=== PATIENT | male | born 1950 | race Caucasian/White ===

== ENCOUNTER → 2020-06-14 13:56 | Outpatient (BNVA) | payer MEDICARE, SELFPAY | PROVIDERS: PCP Internal Medicine; Visit Provider Urology | DX: N39.3 Stress incontinence (female) (male) (principal); C61 Malignant neoplasm of prostate | CPT/HCPCS: Q3014 ==

== ENCOUNTER → 2020-12-18 12:47 | Outpatient (BNVA) | payer MEDICARE, SELFPAY | PROVIDERS: PCP Internal Medicine; Visit Provider Urology | DX: N39.3 Stress incontinence (female) (male) (principal); C61 Malignant neoplasm of prostate | CPT/HCPCS: 52000; 99212 ==

== ENCOUNTER → 2021-03-19 15:32 | Outpatient (BNVA) | payer MEDICARE, SELFPAY | PROVIDERS: PCP Internal Medicine; Visit Provider Urology | DX: L98.7 Excessive and redundant skin and subcutaneous tissue (principal); D49.4 Neoplasm of unspecified behavior of bladder; C79.82 Secondary malignant neoplasm of genital organs; Z90.79 Acquired absence of other genital organ(s) | CPT/HCPCS: Q3014 ==

== ENCOUNTER → 2021-06-18 10:22 | Outpatient (BNVA) | payer MEDICARE, SELFPAY | PROVIDERS: PCP Internal Medicine; Visit Provider Urology | DX: C61 Malignant neoplasm of prostate (principal); N39.3 Stress incontinence (female) (male) | CPT/HCPCS: Q3014 ==

== ENCOUNTER → 2021-12-17 09:17 | Outpatient (BNVA) | payer MEDICARE, SELFPAY | PROVIDERS: PCP Internal Medicine; Visit Provider Urology | DX: N39.3 Stress incontinence (female) (male) (principal); C61 Malignant neoplasm of prostate | CPT/HCPCS: 51798; 99212 ==

== ENCOUNTER → 2022-03-18 13:35 | Outpatient (BNVA) | payer MEDICARE, SELFPAY | PROVIDERS: PCP Internal Medicine; Visit Provider Urology | DX: N39.3 Stress incontinence (female) (male) (principal); C61 Malignant neoplasm of prostate | CPT/HCPCS: Q3014 ==

== ENCOUNTER → 2022-07-07 15:01 | Outpatient (BNVA) | payer MEDICARE, SELFPAY | PROVIDERS: PCP Internal Medicine; Visit Provider Urology | DX: N39.3 Stress incontinence (female) (male) (principal) | CPT/HCPCS: Q3014 ==

== ENCOUNTER 2022-11-03 11:00 | Outpatient (RCR) | payer MEDICARE, SELFPAY ==
--- NOTE | 2022-10-13 10:12 | MHC.PT.EP ---
[facility] [place] Office [place] Office [place] Office [address] Mika Lara [address] [phone] F: [phone] F: [phone] F: [phone] F: [phone] Physical Therapy Plan of Care Date of Evaluation: Date of Surgery: NA Diagnosis: Male urinary stress incontinence Assessment: Jacky is a 72 year old male who is referred to PT for Male urinary stress incontinence . He reports of having symptoms of spontaneous urinary incontinence and ELVIS for the last 3 years. His symptoms started after prostate removal surgery. He also had R inguinal hernia repair 4 years back. In addition he has IBS- mostly having diarrhea- and is managing the same with diet. He denies having any pain. He is not sexually active but has difficulty attaining erection. He however only wants to work on his UI. He lives with his and is independent with all ADLS. He presented with good LE strength but decreased core strength. He would benefit from skilled PT to address the aforementioned impairments and improve tolerance to functional activities. Pt recommended 1/week fro 8 weeks however due to high co-pay pt will let us know when he will return to PT. Frequency and Duration: The patient will be seen 1/week for 8 weeks. Short Term Goals: 1. Internal pelvic exam will be done in 2 weeks. 2. Pt will report of having 50% decrease in UI in 4 weeks Special Education Paraprofessional Goals: 1. Pt will present with no ELVIS in 6 weeks. 2. Pt will be independent with all HEPs for symptom management and maintenance following d/c in 8 weeks. Treatment Plan: Modalities to reduce pain, spasms and effusion. Manual therapy to restore motion and function. Therapeutic exercise to improve strength and flexibility. Neuromuscular re-education for posture and balance. Therapeutic activities to return to functional activities of daily living. Electronically signed by: Please sign and return to therapist. Thank you for your referral.
--- NOTE | 2022-11-12 15:30 | MHC.PT.DC ---
[facility] [place] Office [place] Office [place] Office [address] Sharri Lara [address] [facility] [phone] F: [phone] F: [phone] F: [phone] F: [phone] Physical Therapy Discharge Report Diagnosis: Male urinary stress incontinence Date of Surgery: NA Date of Evaluation: 10/13/22 Date of Discharge: 11/12/22 Treatments to Date: 2 Cancellations to Date: 0 No Shows to Date: Discharge Status: Patient Elected to Stop Discharge Summary: Jacky only attended 1 PT visit after his evaluation due to high copay. He wanted to learn exercises for self management in second visit and he requested to be d/c. I therefore provided him with lumbar stabs and pelvic floor strengthening exercises and d/c him from PT. Electronically signed by: Carlene Shane, PT DPT Please sign and return to therapist. Thank you for your referral.
== END 2022-11-12 15:31 | disposition home or self-care (01) ==
LOC: HO.PT 11:00
PROVIDERS: PCP Internal Medicine; Visit Provider Urology
DX: N39.3 Stress incontinence (female) (male) (principal)
CPT/HCPCS: 97112; 97162

== ENCOUNTER 2023-01-06 13:57 | Outpatient (AMB) | payer MEDICARE, SELFPAY ==
--- NOTE | 2023-01-06 14:08 | MHC.OFFVIS ---
Intake Intake Visit Reasons: 6m Intake Note: Patient is present for Follow Up Urology Med:None Antibiotic Allergy: None Blood Thinner: Eliquis Pharmacy: [facility] Allergies No Known Allergies Allergy (Verified 01/06/23 14:09) HPI HPI Comments History of Present Illness Details Jacky is a very pleasant male. They are a patient of Dr. Olguin. They are seen in the office today for the following urologic conditions. - prostate cancer - male stress incontinence Follow-up from physical therapy Prostate removal robotic prostatectomy 2018 Secondary issue is both sagging of skin secondary to pneumoperitoneum used for surgery and leakage Prior discussion regarding male sling versus sphincter With pelvic floor exercise using 2-3 pads per day Would like to move ahead with male sling Prostate cancer robotic prostatectomy mid 2018 Dr. Gerardo Persistent incontinence 4-5 pads per day PSA - 12/28 <0.1 Cystoscopy - good anastomosis, able to develop sufficient squeeze with sphincter PFSH Medical History Bladder tumor Diabetes mellitus Prostate cancer Stress incontinence Surgical History History of prostatectomy Family History Father No problems noted. Mother No problems noted. Review of Systems Const Denies chills and Denies fever(s) Card Reports no additional complaints and Denies syncope Resp Denies cough GI Denies abdominal pain and Denies heartburn Reports as per HPI and Denies change in libido Neuro Denies syncope Psych Denies change in libido Endo Denies change in libido Physical Exam Const General: cooperative, healthy appearing, comfortable and no acute distress Orientation/consciousness: patient oriented x3 HEENT Face and sinus: Yes normal facial exam Mouth: moist mucous membranes Neck Neck: Yes normal visual inspection, Yes full ROM and Yes trachea midline Chest Chest palpation & inspection: normal inspection of the chest Resp Effort & Inspection: normal respiratory effort, able to speak in complete sentences and no respiratory distress GI Inspection: Yes normal to inspection Back/Spine/Pelvis Cervical Spine: normal cervical lordosis Thoracic/Lumbar Spine: thoracic and lumbar spine normal to inspection Skin General skin exam: no rashes or lesions noted Neuro General: patient oriented x3, gait normal, tone normal and moves all extremities Extrem General: Yes normal to inspection and Yes capillary refill normal Assessment & Plan Assessment & Plan (1) Prostate cancer: Comment: Robotic assisted prostatectomy 2019 Dr. Gerardo Code(s): C61 - Malignant neoplasm of prostate (2) Male urinary stress incontinence: Code(s): N39.3 - Stress incontinence (female) (male) Plan Risks, benefits and alternatives to therapy were discussed. These include but are not limited to infection, bleeding, damage to local organs and tissues, need for further interventions. Anesthetic risks regarding cardiac arrhythmia, blood clots, and potential mortality were discussed. The patient understands the typical recovery time and the outpatient nature of the procedure. After consideration of these risks the patient gives full informed consent and they wish to move ahead with the procedure. Male sling Patient Instructions: Imaging studies, laboratory and physical exam results were discussed and reviewed in detail. No major barriers to patient understanding were identified. An opportunity to ask questions regarding the treatment plan was provided. All questions were answered. The patient expressed understanding and agreement with the above treatment plan. The patient is aware they should contact our office by phone for worsening of their current condition or the appearance of new urologic symptoms. Compliance is encouraged with any medications and followup testing that is ordered. It is a privilege to participate in the urologic care of your patient. If you have any questions or concerns regarding treatment for the above conditions, or other urologic issues, please do not hesitate to contact me. The office telephone contact is [phone]. This note is constructed using voice recognition software. While every effort has been made to ensure accuracy machine applicator cementer errors may have been included. Yours sincerely, Dr Charli Torres MD, [facility] - Urology Providers of Expert, Compassionate Care for the Genitourinary System Coding Level of Care Code Est Pt Level 4 (48317) Diagnoses Prostate cancer C61 Male urinary stress incontinence N39.3
== END 2023-01-06 14:40 | disposition home or self-care (01) ==
PROVIDERS: PCP Internal Medicine; Visit Provider Urology
DX: C61 Malignant neoplasm of prostate (principal); N39.3 Stress incontinence (female) (male)
CPT/HCPCS: 99213

== ENCOUNTER → 2023-01-06 13:57 | Outpatient (BNVA) | payer MEDICARE, SELFPAY | PROVIDERS: Visit Provider Urology ==

== ENCOUNTER 2023-03-19 11:35 | Outpatient (AMB) | payer MEDICARE, SELFPAY ==
--- NOTE | 2023-03-19 11:36 | A.OFFVIS_ITS ---
Intake Intake Visit Reasons: H&P (Male sling 03/29) Intake Note: Patient is Present for Telephone Follow Up H&P Urology Med: None Antibiotic Allergy: None Blood Thinner: Eliquis Allergies No Known Allergies Allergy (Verified 04/20/23 11:35) HPI HPI Comments History of Present Illness Details Jacky is a very pleasant male. They are a patient of Dr. Olguin. They are seen in the office today for the following urologic conditions. - prostate cancer - male stress incontinence Telemedicine Evaluation 15 min Consultation DoximSafeAwake Anil Video attempted Discussion regarding a male sling Understands based suited for [id number] leakage Prior cystoscopy with deposition of urethra Prostate removal robotic prostatectomy mid 2018 Secondary issue is both sagging of skin secondary to pneumoperitoneum used for surgery and leakage Would like to move ahead with male sling Prostate cancer robotic prostatectomy mid 2018 Dr. Gerardo Persistent incontinence 4-5 pads per day PSA - 12/28 <0.1 Cystoscopy - good anastomosis, able to develop sufficient squeeze with sphincter PFSH Medical History Hyperlipidemia Gout HTN (hypertension) DVT (deep venous thrombosis) Diabetes mellitus Bladder tumor Prostate cancer Stress incontinence Surgical History Hx of shoulder surgery Hx of right inguinal hernia repair History of prostatectomy Family History Father No problems noted. Mother No problems noted. Social History Patient Tobacco Use Status: Never used Tobacco Review of Systems Const All systems reviewed & are unremarkable except as noted in HPI and below Denies chills and Denies fever(s) Card Reports no additional complaints and Denies syncope Resp Denies cough GI Denies abdominal pain and Denies heartburn Reports as per HPI and Denies change in libido Musc Reports no additional complaints Neuro Denies syncope Psych Denies change in libido Endo Denies change in libido Physical Exam Telemedicine evaluation Appropriate responses Regular breathing rate and rhythm Const General: cooperative, healthy appearing, comfortable and no acute distress Orientation/consciousness: patient oriented x3 HEENT Head: Yes normal to inspection Ears: hearing grossly normal bilaterally Face and sinus: Yes normal facial exam Mouth: moist mucous membranes Eyes General: appearance normal, both eyes and all related structures Neck Neck: Yes normal visual inspection, Yes full ROM and Yes trachea midline Chest Chest palpation & inspection: normal inspection of the chest Resp Effort & Inspection: normal respiratory effort, able to speak in complete sentences and no respiratory distress GI Inspection: Yes normal to inspection Back/Spine/Pelvis Cervical Spine: normal cervical lordosis Thoracic/Lumbar Spine: thoracic and lumbar spine normal to inspection Skin General skin exam: no rashes or lesions noted Neuro General: patient oriented x3, gait normal, tone normal and moves all extremities Extrem General: Yes normal to inspection and Yes capillary refill normal Assessment & Plan Assessment & Plan (1) Prostate cancer: Comment: Robotic assisted prostatectomy 2018 Dr. Gerardo Code(s): C61 - Malignant neoplasm of prostate (2) Male urinary stress incontinence: Code(s): N39.3 - Stress incontinence (female) (male) Plan Risks, benefits and alternatives to therapy were discussed. These include but are not limited to infection, bleeding, damage to local organs and tissues, need for further interventions. Anesthetic risks regarding cardiac arrhythmia, blood clots, and potential mortality were discussed. The patient understands the typical recovery time and the outpatient nature of the procedure. After consideration of these risks the patient gives full informed consent and they wish to move ahead with the procedure. Male sling placement with cystoscopy Patient Instructions: Imaging studies, laboratory and physical exam results were discussed and reviewed in detail. No major barriers to patient understanding were identified. An opportunity to ask questions regarding the treatment plan was provided. All questions were answered. The patient expressed understanding and agreement with the above treatment plan. The patient is aware they should contact our office by phone for worsening of their current condition or the appearance of new urologic symptoms. Compliance is encouraged with any medications and followup testing that is ordered. It is a privilege to participate in the urologic care of your patient. If you have any questions or concerns regarding treatment for the above conditions, or other urologic issues, please do not hesitate to contact me. The office telephone contact is [phone]. This note is constructed using voice recognition software. While every effort quiros s been made to ensure accuracy meat cooler errors may have been included. Yours sincerely, Dr Charli Torres MD, [facility] - Urology Providers of Expert, Compassionate Care for the Genitourinary System Telehealth Telehealth Location of provider rendering services: practice address Location of patient: address on file Patient Identification confirmed using: Name, : Yes Telehealth method: video Patient verbally consented to treatment: Yes Patient verbally consented to billing insurance company: Yes Patient informed of any privacy concerns related to visit: Yes Coding Level of Care Code Tele Est Pt Level 3 (44988) Diagnoses Prostate cancer C61 Male urinary stress incontinence N39.3
== END 2023-03-19 12:04 | disposition home or self-care (01) ==
LOC: HO.HUSH 11:35
PROVIDERS: PCP Internal Medicine; Visit Provider Urology
DX: C61 Malignant neoplasm of prostate (principal); N39.3 Stress incontinence (female) (male)
CPT/HCPCS: 99213

== ENCOUNTER → 2023-03-19 11:35 | Outpatient (BNVA) | payer MEDICARE, SELFPAY | PROVIDERS: PCP Internal Medicine; Visit Provider Urology ==

== ENCOUNTER 2023-03-24 10:37 | Outpatient (REF) | payer MEDICARE, SELFPAY ==
[2023-03-24 13:35] LABS: Estimated Average Glucose 134 mg/dL; Hemoglobin A1C 151.7562 umol/L; Hemoglobin A1c % 6.3 % (<6.0)
== END 2023-03-24 10:38 | disposition home or self-care (01) ==
LOC: HO.HMGCLDS 10:37
PROVIDERS: PCP Internal Medicine; Visit Provider Urology
DX: E11.9 Type 2 diabetes mellitus without complications (principal)
CPT/HCPCS: 36415; 83036

== ENCOUNTER 2023-03-29 08:16 | Day surgery (SDC) | payer MEDICARE, SELFPAY ==
[2023-03-25 09:00] VITALS: BMI 28.6
--- NOTE | 2023-03-26 10:47 | P.CONAN_ITS ---
Documented by User: Raysa Ruano NP 03/26/23 10:49 HPI - Anesthesia Eval Consult details Narrative: 72yo M for Pubo Sling - Male w/ cystoscopy Medically optimized per PCP Eliquis for chronic DVT PMFSH Active Problems Active Problems: All Active Problems (Updated 03/26/23 @ 09:37 by Yoko Capps RN) Male urinary stress incontinence (Acute) Prostate cancer (Acute) Diabetes mellitus (Acute) Past Medical History Medical History (Updated 03/26/23 @ 09:37 by Yoko Capps RN) Hyperlipidemia Gout HTN (hypertension) DVT (deep venous thrombosis) Diabetes mellitus Bladder tumor Prostate cancer Stress incontinence Family History Family History Father No problems noted. Mother No problems noted. Surgical History Surgical History (Updated 03/29/23 @ 08:46 by Lashanda Seth RN) Hx of shoulder surgery Hx of right inguinal hernia repair History of prostatectomy Social History Social History Patient Tobacco Use Status: Never used Tobacco Meds Allergies Allergy/AdvReac Type Severity Reaction Status Date / Time No Known Allergies Allergy Verified 03/29/23 08:46 Home Medications Medication Instructions Recorded Confirmed Last Taken Type allopurinol 300 mg tablet 300 mg PO DAILY 06/14/20 03/29/23 Unknown History atorvastatin 10 mg tablet 10 mg PO DAILY 06/14/20 03/29/23 Unknown History metformin 1,000 mg tablet 1,000 mg PO BID 03/19/21 03/29/23 Unknown History apixaban 2.5 mg tablet (Eliquis) 2.5 mg PO BID 07/07/22 03/29/23 03/26/23 History losartan 100 mg tablet 100 mg PO DAILY 07/07/22 03/29/23 Unknown History metformin 500 mg tablet,extended 1,000 mg PO BID 01/06/23 03/29/23 Unknown History release 24 hr Exam Height,Weight and Vital Signs: Height 5 ft 10 in Weight 90.265 kg Narrative Narrative: EKG NSR per PCP note Assessment and Plan Assessment Anesthesia Assessment: Chart Reviewed Documented by User: Lizzeth Gupta MD 03/29/23 09:34 [facility] Past Medical History Medical History (Updated 03/26/23 @ 09:37 by Yoko Capps RN) Hyperlipidemia Gout HTN (hypertension) DVT (deep venous thrombosis) Diabetes mellitus Bladder tumor Prostate cancer Stress incontinence Family History Family History Father No problems noted. Mother No problems noted. Family history of problems with anesthesia: No Surgical History Surgical History (Updated 03/29/23 @ 08:46 by Lashanda Seth RN) Hx of shoulder surgery Hx of right inguinal hernia repair History of prostatectomy History of Problems with Anesthesia: No Social History Social History Patient Tobacco Use Status: Never used Tobacco Meds Allergies Allergy/AdvReac Type Severity Reaction Status Date / Time No Known Allergies Allergy Verified 03/29/23 08:46 Home Medications Medication Instructions Recorded Confirmed Last Taken Type allopurinol 300 mg tablet 300 mg PO DAILY 06/14/20 03/29/23 Unknown History atorvastatin 10 mg tablet 10 mg PO DAILY 06/14/20 03/29/23 Unknown History metformin 1,000 mg tablet 1,000 mg PO BID 03/19/21 03/29/23 Unknown History apixaban 2.5 mg tablet (Eliquis) 2.5 mg PO BID 07/07/22 03/29/23 03/26/23 History losartan 100 mg tablet 100 mg PO DAILY 07/07/22 03/29/23 Unknown History metformin 500 mg tablet,extended 1,000 mg PO BID 01/06/23 03/29/23 Unknown History release 24 hr Exam Airway Mallampati Class: II (missing a couple ) TM Dist: >3cm Neck ROM: Full Heart: rrr Lungs: cta Assessment and Plan Assessment Anesthesia Assessment: Anesthesia Plan Discussed Final Anesthetic Review Family History of Problems with Anesthesia: No History of Problems with Anesthesia: No NPO: Yes ASA Class: II Final Preanesthetic Review: No Changes in Pt Med Stat, Meds/Allgs Chart Reviewed and Consent Obtained/Reviewed Patient Risk: Intermediate Procedure Risk: Intermediate Anesthetic Plan Anesthetic Plan: GA Disposition: Standard PACU
[2023-03-29] VITALS (12 sets, daily range): BP systolic 143–175; BP diastolic 68–87; PULSE 59–82; RESP 16–18; TEMP 36.2–36.6; O2SAT 92–98
[2023-03-29] MEDS: Lactated Ringers 1,000 ML 100 ML IVCONT (09:02)
[2023-03-29 09:10] LABS: Glucose, Whole Blood 120 mg/dL (60-115)
--- NOTE | 2023-03-29 11:18 | MHC.SHP ---
Pre-Procedural Eval Section A Date of Service: 03/29/23 The patient is an INPATIENT: No Changes since office visit: No Cold of Flu in the past 2 weeks, No New Medical Problems, No Changes in Medication and No Patient answered all questions The History & Physical has been completed within 30 days and I have reviewed it.: No Section B Chief Complaint: Stress incontinence (female) (male) Details of Present Illness: post prostatectomy incontinence Relevant Family History (Specify if Yes): No Relevant Social History: None Present Medications: see Short Stay Collaborative assessment Medical History: No relevant PMH History of Previous Operations: Relevant previous surgery/procedure and date(s) Allergies: Allergies Allergy/AdvReac Type Severity Reaction Status Date / Time No Known Allergies Allergy Verified 03/29/23 08:46 Review of Systems Sugical H&P ROS: Negative: Constitution, Cardiovascular, Respiratory, Neurological, Psychiatric, Hem-Onc, Allergic/Immunologic, Gastrointestinal, Genitourinary, Musculoskeletal, Integumentary, Endocrine and Eyes/Ears/Nose/Throat Exam Surgical H&P Exam: Normal: HEENT, Normal: Heart, Normal: Lungs, Normal: Extremities, Normal: Abdomen, Normal: Skin and Normal: Neurological Plan Diagnosis/Plan: Unchanged (pubo perineal male sling) I have reviewed the history and physical and performed a pertinent physical examination on my patient. No changes have occurred unless specified. Time Spent With Patient Time: Total time managing care of this patient today ____ minutes.
--- NOTE | 2023-03-29 14:05 | P.OP_ITS ---
Operative Note Operative Note Date of Service: 03/29/23 Narrative: PreOperative Diagnosis: male stress incontinence Post Operative Diagnosis: male stress incontinence Procedure: Advance male sling with cystoscopy Surgeon: Dr Charli Torres Anesthesia: general Indications for procedure: Male stress incontinence following radical prostatectomy. 2-4 pads per day. Office cystoscopy shows good tissue apposition. Procedure: After informed consent was verified the patient was brought to the operating room and placed in a supine position. Anesthesia was administered per protocol. The patient was placed in a dorsal lithotomy position. Legs aligned to patient's shoulders bent at 90 degrees with slight spread. He was prepped and draped in a sterile fashion. Safety pause time-out was performed. Antibiotics had been given including 2 g catheterization Kefazolin and gentamicin per protocol. Sixteen Beninese Posadas catheter placed on the field in bladder drained. Scrotum and Posadas catheter elevated. 5 cm lobe midline perineal incision was marked. Local anesthetic was infiltrated through the skin. Incision was made and taken down through Colles fascia. A Manchester retractor was used to provide adequate exposure. Dissection was performed releasing the bulbar spongiosis muscle from its overlying tissue. This was freed laterally, proximally and distally. At the distal edge the junction between the bulbar muscle and corpus spongiosum was defined. The bubble spongiosis muscle was then divided starting distal and running p roximally. Careful dissection was performed laterally to release any connecting tissue from the corpus spongiosum. The distal aspect of the central tendon was identified by lifting the proximal bulb anteriorly to provide counter traction. The initial dissection of the central tendon was performed. A 4-0 Vicryl suture was placed on the distal aspect of the central tendon insertion for identific ation. Urethra was mobilized incising fibrous portion of central tendon for approximately 3 to 4 cm of proximal displacement. Care was taken regarding the proximal midline vessels feeding into the corpus spongiosum. At this point the internal aspect of the obturator canal was palpable. This was defined by the symphysis pubis above in the issue of pubic ramus laterally. The insertion of the adductus longus tendon on to the pubis was palpated and marked on each side with a marking pen. The spot of insertion was 1 fingerbreadth below the insertion of the adductor longus tendon lateral to the ischiopubic ramus. Local anesthetic was infiltrated on each side. An Allis clamp was placed on the edge of the bulbous spongiosis muscle in order to assist with the traction away from the side of trocar passage. On the patient's left side the helical trocar was held at a 45 degree angle to the midline with the trocar against the patient's buttock. The index finger of the left hand was placed in the perineal incision. The index finger was placed at the apex of the obturator canal. The surface of the pubic ramus was palpable. The finger was placed to protect the corpus from inadvertent trocar injury. The trocar was advanced and 2 pops were felt as the trocar passed through the obturator externus and obturator internus muscle layers. After the 2nd pop the trocar was turned approximately 1/4 turn to bring the needle on to the index finger. As the trocar was brought through the fascia the handle was dropped in a vertical fashion to bring out the needle as high as possible in the apex of the obturator fossa. Once the trocar was delivered the mesh was attached with the blue dots facing out and brought back through the stab incision. A similar procedure was performed on the left side and the mesh brought out through the skin incision. The mesh was attached to the corpus spongiosum via 4 separate 4-0 Vicryl sutures. The proximal edge of the mesh was aligned with the initial central tendon marking suture prior to being secured to the corpus spongiosum. The distal edge of the mesh was likewise attached to the corpus spongiosum. The Posadas catheter was removed. The Manchester retractor was removed. Flexible cystoscopy was performed. The sling was tightened until circumferential coaptation was observed. This was evaluated with the water turned both on and off. The mesh was examined through the incision and an indent configuration of the corpus spongiosum was notable. The protective sheath and outer plastic sheath were removed. The sheath was irrigated with antibiotic solution. The mesh was stabilized by holding the mesh next to the corpus spongiosum on the contralateral side. At this point the sheath was removed. This happened after the sheath was divided below the blue gita located at the end of the sling. Initially this was performed on the left side and subsequently repeated on the right side. The arms of the mesh were tunneled subcutaneously using a tonsil clamp in order to minimize chance of slippage. The overlying bulbocavernosus muscle was closed with running 3-0 Vicryl suture. Irrigation was performed. Hemostasis was adequate. A 2nd intervening layer of tissue was closed using a running 3-0 Vicryl. Skin was closed with a running 4-0 Monocryl. Incisions were cleaned and dried. Glue was placed and a final dressing placed. Prior to closure of the incision a 14 Beninese Posadas catheter was placed into the bladder which remain overnight. He tolerated the procedure well was extubated in operating room and transferred in stable condition to the recovery area. Pathology: None Drains: Posadas
== END 2023-03-29 16:18 | disposition home or self-care (01) ==
PROVIDERS: PCP Internal Medicine; Visit Provider Urology
PROC: (CPT 53440; principal; 2023-03-29 11:00)
DX: N39.3 Stress incontinence (female) (male) (principal); E11.9 Type 2 diabetes mellitus without complications; I10 Essential (primary) hypertension; E78.5 Hyperlipidemia, unspecified; D49.4 Neoplasm of unspecified behavior of bladder; Z86.718 Personal history of other venous thrombosis and embolism; Z85.46 Personal history of malignant neoplasm of prostate; Z79.01 Long term (current) use of anticoagulants; Z79.84 Long term (current) use of oral hypoglycemic drugs; Z79.899 Other long term (current) drug therapy
CPT/HCPCS: 53440; 82947; C1771; J0131; J0690; J1100; J1885; J2250; J2405; J2550; J2704; J2795; J3010

== ENCOUNTER → 2023-03-29 08:16 | Outpatient (BNV) | payer MEDICARE, SELFPAY | PROVIDERS: PCP Internal Medicine; Visit Provider Urology | DX: N39.3 Stress incontinence (female) (male) (principal) | CPT/HCPCS: 53440 ==

== ENCOUNTER → 2023-03-31 14:36 | Outpatient (BNVA) | payer MEDICARE, SELFPAY | PROVIDERS: PCP Internal Medicine; Visit Provider Urology ==

== ENCOUNTER → 2023-04-06 09:49 | Outpatient (BNVA) | payer MEDICARE, SELFPAY | PROVIDERS: PCP Internal Medicine; Visit Provider Urology | DX: N39.3 Stress incontinence (female) (male) (principal) | CPT/HCPCS: 51798 ==

== ENCOUNTER 2023-04-20 11:18 | Outpatient (AMB) | payer MEDICARE, SELFPAY ==
--- NOTE | 2023-04-20 11:34 | MHC.OFFVIS ---
Intake Intake Visit Reasons: 3 wk (male sling) Intake Note: Patient is Present for Follow Up Male Sling Urology Medication: None Antibiotic Allergies: None Blood Thinners: Eliquis Allergies No Known Allergies Allergy (Verified 04/20/23 11:35) HPI HPI Comments History of Present Illness Details Jacky is a very pleasant male. They are a patient of Dr. Olguin. They are seen in the office today for the following urologic conditions. - prostate cancer - male stress incontinence Follow-up from male sling procedure Minimal leakage Pain at right lateral incision site Consistent with trocar placement through adductor longus muscle Is slowly resolving Encouraged to continue with restrictions for lifting Good initial result 3 month follow-up PSA Prostate removal robotic prostatectomy mid 2018 Secondary issue is both sagging of skin secondary to pneumoperitoneum used for surgery and leakage Prostate cancer robotic prostatectomy mid 2018 Dr. Gerardo Persistent incontinence 4-5 pads per day PSA - 12/28 <0.1 Cystoscopy - good anastomosis, able to develop sufficient squeeze with sphincter Postprocedure stress incontinence Initial 3-4 pads per day 04/01 male sling placement PFSH Medical History Hyperlipidemia Gout HTN (hypertension) DVT (deep venous thrombosis) Diabetes mellitus Bladder tumor Prostate cancer Stress incontinence Surgical History Hx of shoulder surgery Hx of right inguinal hernia repair History of prostatectomy Family History Father No problems noted. Mother No problems noted. Social History Patient Tobacco Use Status: Never used Tobacco Review of Systems Const Denies chills and Denies fever(s) Card Reports no additional complaints and Denies syncope Resp Denies cough GI Denies abdominal pain and Denies heartburn Reports as per HPI and Denies change in libido Neuro Denies syncope Psych Denies change in libido Endo Denies change in libido Physical Exam Const General: cooperative, healthy appearing, comfortable and no acute distress Orientation/consciousness: patient oriented x3 HEENT Face and sinus: Yes normal facial exam Mouth: moist mucous membranes Neck Neck: Yes normal visual inspection, Yes full ROM and Yes trachea midline Chest Chest palpation & inspection: normal inspection of the chest Resp Effort & Inspection: normal respiratory effort, able to speak in complete sentences and no respiratory distress GI Inspection: Yes normal to inspection Back/Spine/Pelvis Cervical Spine: normal cervical lordosis Thoracic/Lumbar Spine: thoracic and lumbar spine normal to inspection Skin General skin exam: no rashes or lesions noted Neuro General: patient oriented x3, gait normal, tone normal and moves all extremities Extrem General: Yes normal to inspection and Yes capillary refill normal Assessment & Plan Assessment & Plan (1) Prostate cancer: Comment: Robotic assisted prostatectomy 2018 Dr. Gerardo Code(s): C61 - Malignant neoplasm of prostate (2) Male urinary stress incontinence: Code(s): N39.3 - Stress incontinence (female) (male) Plan Three month follow-up PSA Orders: Orders AMB Urinalysis Automated Today Z13.9 - Encounter for screening, unspecified AMB Post Void Residual by ultrasound Today N39.3 - Stress incontinence (female) (male) Prostate Specific Antigen 3 Months C61 - Malignant neoplasm of prostate Patient Instructions: Imaging studies, laboratory and physical exam results were discussed and reviewed in detail. No major barriers to patient understanding were identified. An opportunity to ask questions regarding the treatment plan was provided. All questions were answered. The patient expressed understanding and agreement with the above treatment plan. The patient is aware they should contact our office by phone for worsening of their current condition or the appearance of new urologic symptoms. Compliance is encouraged with any medications and followup testing that is ordered. It is a privilege to participate in the urologic care of your patient. If you have any questions or concerns regarding treatment for the above conditions, or other urologic issues, please do not hesitate to contact me. The office telephone contact is [phone]. This note is constructed using voice recognition software. While every effort has been made to ensure accuracy sanitary plumber errors may have been included. Yours sincerely, Dr Charli Torres MD, [facility] - Urology Providers of Expert, Compassionate Care for the Genitourinary System Coding Level of Care Code Global (33700) Diagnoses Prostate cancer C61 Male urinary stress incontinence N39.3
== END 2023-04-20 12:35 | disposition home or self-care (01) ==
PROVIDERS: PCP Internal Medicine; Visit Provider Urology
DX: C61 Malignant neoplasm of prostate (principal); N39.3 Stress incontinence (female) (male)
CPT/HCPCS: 99024

== ENCOUNTER → 2023-04-20 11:18 | Outpatient (BNVA) | payer MEDICARE, SELFPAY | PROVIDERS: PCP Internal Medicine; Visit Provider Urology | DX: C61 Malignant neoplasm of prostate (principal); N39.3 Stress incontinence (female) (male) | CPT/HCPCS: 99212 ==

== ENCOUNTER 2023-07-15 11:06 | Outpatient (REF) | payer MEDICARE, SELFPAY ==
[2023-07-15 14:10] LABS: Prostate Specific Antigen < 0.10 ng/mL (<0.05-4.0)
== END 2023-07-15 11:07 | disposition home or self-care (01) ==
LOC: HO.10HDL 11:06
PROVIDERS: Visit Provider Urology
DX: C61 Malignant neoplasm of prostate (principal); Z12.5 Encounter for screening for malignant neoplasm of prostate
CPT/HCPCS: 36415; 84153

== ENCOUNTER 2023-07-23 10:09 | Outpatient (AMB) | payer MEDICARE, SELFPAY ==
--- NOTE | 2023-07-23 10:11 | MHC.OFFVIS ---
Intake Intake Visit Reasons: 3M PSA(set)Confirmed Intake Note: Patient is Present for Follow Up Urology Medication: None Antibiotic Allergies: None Blood Thinners: Eliquis Allergies No Known Allergies Allergy (Verified 07/23/23 10:14) HPI HPI Comments History of Present Illness Details Jacky is a very pleasant male. They are a patient of Dr. Olguin. They are seen in the office today for the following urologic conditions. - prostate cancer - male stress incontinence PSA remaining low Male sling follow-up Effective control on urination Prostate removal robotic prostatectomy mid 2018 Secondary issue is both sagging of skin secondary to pneumoperitoneum used for surgery and leakage Prostate cancer robotic prostatectomy mid 2018 Dr. Gerardo Persistent incontinence 4-5 pads per day PSA - 12/28 <0.1, 07/31 <0.1 Cystoscopy - good anastomosis, able to develop sufficient squeeze with sphincter Postprocedure stress incontinence Initial 3-4 pads per day 04/01 male sling placement PFSH Medical History Hyperlipidemia Gout HTN (hypertension) DVT (deep venous thrombosis) Diabetes mellitus Bladder tumor Prostate cancer Stress incontinence Surgical History Hx of shoulder surgery Hx of right inguinal hernia repair History of prostatectomy Family History Father No problems noted. Mother No problems noted. Social History Patient Tobacco Use Status: Never used Tobacco Review of Systems Const Denies chills and Denies fever(s) Card Reports no additional complaints and Denies syncope Resp Denies cough GI Denies abdominal pain and Denies heartburn Reports as per HPI and Denies change in libido Neuro Denies syncope Psych Denies change in libido Endo Denies change in libido Physical Exam Const General: cooperative, healthy appearing, comfortable and no acute distress Orientation/consciousness: patient oriented x3 HEENT Face and sinus: Yes normal facial exam Mouth: moist mucous membranes Neck Neck: Yes normal visual inspection, Yes full ROM and Yes trachea midline Chest Chest palpation & inspection: normal inspection of the chest Resp Effort & Inspection: normal respiratory effort, able to speak in complete sentences and no respiratory distress GI Inspection: Yes normal to inspection Back/Spine/Pelvis Cervical Spine: normal cervical lordosis Thoracic/Lumbar Spine: thoracic and lumbar spine normal to inspection Skin General skin exam: no rashes or lesions noted Neuro General: patient oriented x3, gait normal, tone normal and moves all extremities Extrem General: Yes normal to inspection and Yes capillary refill normal Assessment & Plan Assessment & Plan (1) Prostate cancer: Comment: Robotic assisted prostatectomy 2018 Dr. Gerardo Code(s): C61 - Malignant neoplasm of prostate (2) Male urinary stress incontinence: Code(s): N39.3 - Stress incontinence (female) (male) Plan 12 month follow-up PSA Orders: Orders Prostate Specific Antigen 364 Days C61 - Malignant neoplasm of prostate Patient Instructions: Imaging studies, laboratory and physical exam results were discussed and reviewed in detail. No major barriers to patient understanding were identified. An opportunity to ask questions regarding the treatment plan was provided. All questions were answered. The patient expressed understanding and agreement with the above treatment plan. The patient is aware they should contact our office by phone for worsening of their current condition or the appearance of new urologic symptoms. Compliance is encouraged with any medications and followup testing that is ordered. It is a privilege to participate in the urologic care of your patient. If you have any questions or concerns regarding treatment for the above conditions, or other urologic issues, please do not hesitate to contact me. The office telephone contact is [phone]. This note is constructed using voice recognition software. While every effort has been made to ensure accuracy blow up operator errors may have been included. Yours sincerely, Dr Charli Torres MD, [facility] - Urology Providers of Expert, Compassionate Care for the Genitourinary System Coding Level of Care Code Est Pt Level 3 (02116) Diagnoses Prostate cancer C61 Male urinary stress incontinence N39.3
== END 2023-07-23 10:38 | disposition home or self-care (01) ==
LOC: HO.HUSH 10:09
PROVIDERS: PCP Internal Medicine; Visit Provider Urology
DX: C61 Malignant neoplasm of prostate (principal); N39.3 Stress incontinence (female) (male)
CPT/HCPCS: 99213

== ENCOUNTER → 2023-07-23 10:09 | Outpatient (BNVA) | payer MEDICARE, SELFPAY | PROVIDERS: PCP Internal Medicine; Visit Provider Urology | DX: C61 Malignant neoplasm of prostate (principal); N39.3 Stress incontinence (female) (male) | CPT/HCPCS: 99212 ==

== ENCOUNTER 2024-08-07 11:09 | Outpatient (REF) | payer MEDICARE, SELFPAY ==
--- OUTSIDE RECORDS SUMMARY | 2024-08-07 12:45 | XMS_ITS | Patient Health Record ---
Author Organization [facility] [place] Address [address] [place] [address] Care Team Providers Care Perennial House Manager Name Role Phone Sharif GIBBS, Javed Primary Care Provider Unavailab juan f MataAileene Unavailable [phone] Allergies Allergen (clinical drug ingredient) Drug/Non Drug Allergy documented on EMR Reaction Allergy Type Onset Date Status anesthesia non- specific (uncoded) can't wake up Allergy Active shrimp allergenic extract Shrimp (Diagnostic) Unknown Drug Allergy Active Shellfish (FN) Shellfish-derived Products Unknown Drug Allergy Active Reason For Referral No Information Medications Medication SIG (Take, Route, Frequency, Duration) Notes Start Date End Date Status Allopurinol 300 MG 1 tablet Orally Once a day for 30 day(s) Active Eliquis 5 MG as directed Orally Active metFORMIN HCl 1000 MG 1 tablet with a me al Orally twice daily Active Atorvastatin Calcium 10 MG 1 tablet Oral ly Once a day for 30 day(s) Active Night Splint AFO - L1930 as directed 01/22/2021 Active Immunizations Vaccine Route Administration Date Status Comme nts COVID-19 Pfizer BioNTech Vaccine Unknown 03/05/2021 Administered 1st shot 07/09/2020 2nd vaccine 08/02/20 Social History Tobacco Use: Social History Observation Description Date Details (start date - stop date) Never Smoker NA - NA Tobacco Use/Smoking Question Answer Notes Are you a: nonsmoker Alcohol Screen Question Answer Notes Did you have a drink containing alcohol in the p ast year? No Points 0 Interpretation Negative Tobacco use other than smoking: Question Answer Notes Are you an other tobacco user? No Problems Problem Type SNOMED Code ICD Code Onset Dates Problem Status W/U Status Risk Notes Problem Localized, primary osteoarthritis of the ankle and/or foot (491414101) Primary osteoarthritis, left ankle and foot (M19.072) Active confirmed Problem Acquired hammer toe of left foot (4271340807146854) Other hammer toe(s) (acquired), left foot (M20.42) Active confirmed Problem Type II diabetes mellitus without complication (783738090) Type 2 diabetes mellitus without complications (E11.9) Active confirmed Plan Of Treatment No Information Insurance Providers Payer Name Payer Address Payer Phone Subscriber Number Group Number Insured Name Patient Relationship to Insured Coverage Start Date Coverage End Date Medicare National Govt S[employer] [address] [place] [address] [id number] Jacky Manriquez Self - patient is the insured [employer] [address] [place] [address] [id number] Jacky Manriquez Self - patient is the insured Medical (General) History Medical History History ICD Code Arthritis Back,Hip,and Knee pain Cancer Depression Diabetes mellitus Diverticulosis Gout Hiatal hernia Reflux ( GERD) Measles Chicken pox Surgical History Surgery Date(Month/Year) knee surgery prostate cancer 09/2018 rotator cuff tear repair 09/06/2017
--- OUTSIDE RECORDS SUMMARY | 2024-08-07 12:45 | XMS_ITS | Clinical Summary ---
Author Organization [facility] ity Address [address] [place] [address] Care Team Providers Care Calculator Operator Name Role Phone Unavailable Primary Care Provider Unavailabl e Social History Tobacco Use Types Packs/Day Years Used Date Smoking Tobacco: Never Assessed Sex and Gender Information Value Date Recorded Sex Assigned at Not on file Legal Sex Male 3:29 AM EST Gender Identity Not on file Sexual Orientation Not on file Plan of Treatment Health Maintenance Due Date Last Done Comments DTaP,Tdap,and Td Vaccines (1 - Tdap) 07/23/1971 Pneumococcal Vaccine: 50+ Ye ars (1 of 1 - PCV) 2002 Zoster Vaccines (1 of 2) 2002 Abdominal Aortic Aneurysm (A AA) Screen 04/12/2022 Cholesterol Screening (Lipid Panel) 04/12/2022 Colorectal Cancer Screening: Colonoscopy 04/12/2022 Depression Screening 04/12/2022 Falls Risk Assessment 04/12/2022 Hepatitis C Screening 04/12/2022 Social Influencers of Health Screening 04/12/2022 COVID-19 Vaccine (1 - 2023-2 5 season) 2024 Influenza Vaccine (#1) 2024 RSV Immunization Patients 60 + Years Old (1 - 1-dose 75+ series) 07/23/2027 HIB Vaccines Aged Out No longer eligi ble based on patient's age to complete this topic HPV Vaccines Aged Out No longer eligi ble based on patient's age to complete this topic Hepatitis A Vaccines Aged Out No long er eligible based on patient's age to complete this topic Hepatitis B Vaccines Aged Out No long er eligible based on patient's age to complete this topic IPV Vaccines Aged Out No longer eligi ble based on patient's age to complete this topic MMR Vaccines Aged Out No longer eligi ble based on patient's age to complete this topic Meningococcal ACWY Vaccine Aged Out N o longer eligible based on patient's age to complete this topic Meningococcal B Vacine Aged Out No lo nger eligible based on patient's age to complete this topic RSV Immunization Patients Un vince 20 months Aged Out No longer eligible b ased on patient's age to complete this topic Varicella Vaccines Aged Out No longer eligible based on patient's age to complete this topic
[2024-08-07 15:04] LABS: Prostate Specific Antigen < 0.10 ng/mL (<0.05-4.0)
== END 2024-08-07 11:10 | disposition home or self-care (01) ==
LOC: HO.HMGCLDS 11:09
PROVIDERS: PCP Internal Medicine; Visit Provider Urology
DX: C61 Malignant neoplasm of prostate (principal); Z12.5 Encounter for screening for malignant neoplasm of prostate
CPT/HCPCS: 36415; 84153

== ENCOUNTER 2024-08-15 13:44 | Outpatient (AMB) | payer MEDICARE, SELFPAY ==
--- NOTE | 2024-08-15 14:04 | A.OFFVIS_ITS ---
Intake Visit Reasons: 1y/PSA(psa?) Intake Note: Patient is Present for 1y Follow Up/psa Urology Medication: allopurinol Antibiotic Allergies: None Blood Thinners: Eliquis Head Automatic Sawyer Required: No Allergies No Known Allergies Allergy (Verified 08/15/24 14:06) HPI Comments Details: Jacky is a very pleasant male. They are a patient of Dr. Olguin. They are seen in the office today for the following urologic conditions. - prostate cancer - male stress incontinence Yearly follow-up PSA remaining low Male sling follow-up Effective control on urination Prostate removal robotic prostatectomy mid 2018 Secondary issue is both sagging of skin secondary to pneumoperitoneum used for surgery and leakage Talked to about oxybutynin Prostate cancer robotic prostatectomy mid 2018 Dr. Gerardo Persistent incontinence 4-5 pads per day PSA - 12/28 <0.1, 07/31 <0.1, 08/01 <0.1 Cystoscopy - good anastomosis, able to develop sufficient squeeze with sphincter Postprocedure stress incontinence Initial 3-4 pads per day 04/01 male sling placement PFS Medical History Hyperlipidemia Gout HTN (hypertension) DVT (deep venous thrombosis) Diabetes mellitus Bladder tumor Prostate cancer Stress incontinence Surgical History Hx of shoulder surgery Hx of right inguinal hernia repair History of prostatectomy Family History Father No problems noted. Mother No problems noted. Social History Patient Tobacco Use Status: Never used Tobacco Review of Systems Const Denies chills and Denies fever(s) Card Reports no additional complaints and Denies syncope Resp Denies cough GI Denies abdominal pain and Denies heartburn Reports as per HPI and Denies change in libido Neuro Denies syncope Psych Denies change in libido Endo Denies change in libido Physical Exam Const General: cooperative, healthy appearing, comfortable and no acute distress Orientation/consciousness: patient oriented x3 HEENT Face and sinus: Yes normal facial exam Mouth: moist mucous membranes Neck Neck: Yes normal visual inspection, Yes full ROM and Yes trachea midline Chest Chest palpation & inspection: normal inspection of the chest Resp Effort & Inspection: normal respiratory effort, able to speak in complete sentences and no respiratory distress GI Inspection: Yes normal to inspection Back/Spine/Pelvis Cervical Spine: normal cervical lordosis Thoracic/Lumbar Spine: thoracic and lumbar spine normal to inspection Skin General skin exam: no rashes or lesions noted Neuro General: patient oriented x3, gait normal, tone normal and moves all extremities Extrem General: Yes normal to inspection and Yes capillary refill normal Assessment & Plan Assessment & Plan (1) Prostate cancer: Comment: Robotic assisted prostatectomy 2019 Dr. Gerardo Code(s): C61 - Malignant neoplasm of prostate Category: Medical (2) Male urinary stress incontinence: Code(s): N39.3 - Stress incontinence (female) (male) Category: Medical Plan 12 month follow-up Orders: Orders AMB Urinalysis Automated Today Z13.9 - Encounter for screening, unspecified Urine Cytology Today N39.0 - Urinary tract infection, site not specified Prostate Specific Antigen 1 Year C61 - Malignant neoplasm of prostate Patient Instructions: This note is constructed using voice recognition software. While every effort quiros s been made to ensure accuracy volunteer fire fighter errors may have been included. Imaging studies, laboratory and physical exam results were discussed and reviewed in detail. No major barriers to patient understanding were identified. An opportunity to ask questions regarding the treatment plan was provided. All questions were answered. The patient expressed understanding and agreement with the above treatment plan. The patient is aware they should contact our office by phone for worsening of their current condition or the appearance of new urologic symptoms. Compliance is encouraged with any medications and followup testing that is ordered. It is a privilege to participate in the urologic care of your patient. If you have any questions or concerns regarding treatment for the above conditions, or other urologic issues, please do not hesitate to contact me. The office telephone contact is [phone]. Sincerely, Dr Charli Torres MD, [facility] - Urology Compassionate Specialist Care for the Genitourinary System Coding Level of Care Code Est Pt Level 4 (18365) Complex EM visit Add On G2211 Diagnoses Prostate cancer C61 Male urinary stress incontinence N39.3
--- OUTSIDE RECORDS SUMMARY | 2024-08-15 16:47 | XMS_ITS | Patient Health Record ---
Author Organization [facility] [place] Address [address] [place] [address] Care Team Providers Care Acetylene Plant Operator Name Role Phone Sharif GIBBS, Javed Primary Care Provider Unavailab juan f MataAileene Unavailable [phone] Allergies Allergen (clinical drug ingredient) Drug/Non Drug [...] primary osteoarthritis of the ankle and/or foot (409881021) Primary osteoarthritis, left ankle and foot (M19.072) Active confirmed Problem Acquired hammer toe of left foot (1217451231304034) Other hammer toe(s) (acquired), left foot (M20.42) Active confirmed Problem Type II diabetes mellitus without complication (166314160) Type 2 diabetes mellitus without complications (E11.9) Active confirmed Plan Of Treatment No Information Insurance Providers Payer Name Payer Address Payer Phone Subscriber Number Group Number Insured Name Patient Relationship to Insured Coverage Start Date Coverage End Date Medicare National Govt Svcs Inc [address] [place] [address] [id number] Jacky Manriquez Self - patient is the insured [employer] [address] [place] [address] [phone] [id number] Jacky Manriquez Self - patient is the insured Medical (General) History Medical History History ICD Code Arthritis Back,Hip,and Knee pain Cancer Depression Diabetes mellitus Diverticulosis Gout Hiatal hernia Reflux ( GERD) Measles Chicken pox Surgical History Surgery Date(Month/Year) knee surgery prostate cancer 09/2018 rotator cuff tear repair 09/06/2017
--- OUTSIDE RECORDS SUMMARY | 2024-08-15 16:47 | XMS_ITS | Clinical Summary ---
Author Organization [facility] ity Address [address] [place] [address] Care Team Providers Care Interpretative Dancer Name Role Phone Unavailable Primary Care Provider [...] 2024 Influenza Vaccine (#1) 2024 RSV Immunization Adult Patie nts (1 - 1-dose 75+ series) 07/23/2027 HIB [...] age to complete this topic Meningococcal B Vaccine Aged Out No l onger eligible based on patient's age to complete this topic RSV Immunization Patients Un vince 20 months Aged Out No longer eligible b ased on patient's age to complete this topic Varicella Vaccines Aged Out No longer eligible based on patient's age to complete this topic
== END 2024-08-15 14:47 | disposition home or self-care (01) ==
LOC: HO.HUSH 13:45
PROVIDERS: PCP Internal Medicine; Visit Provider Urology
DX: C61 Malignant neoplasm of prostate (principal); N39.3 Stress incontinence (female) (male); Z13.9 Encounter for screening, unspecified
CPT/HCPCS: 99214; G2211

== ENCOUNTER 2024-08-15 13:44 | Outpatient (REF) | payer MEDICARE, SELFPAY ==
[2024-08-15 17:01] LABS: Urine Cytology See Pathology rpt
--- OUTSIDE RECORDS SUMMARY | 2024-08-15 17:30 | XMS_ITS | Clinical Summary ---
Author Organization [facility] ity Address [address] [place] [address] Care Team Providers Care Raspberry Checker Name Role Phone Unavailable Primary Care Provider [...]
== END 2024-08-15 13:45 | disposition home or self-care (01) ==
LOC: HO.LAB 13:44
PROVIDERS: PCP Internal Medicine; Visit Provider Urology
DX: C61 Malignant neoplasm of prostate (principal); N39.0 Urinary tract infection, site not specified; N39.3 Stress incontinence (female) (male)
CPT/HCPCS: 81003; 88112; 99212